=== PATIENT | male | born 1960 | race Caucasian/White ===

== ENCOUNTER → 2018-11-01 | Outpatient (CLI) | payer BC ==
--- NOTE | 2018-11-08 12:59 | SLEEPCENT ---
DATE OF PROCEDURE: 11/01/2018 Nocturnal polysomnography was performed for retitration of pressure therapy in this patient with obstructive sleep apnea syndrome. For testing, a [employer] Simplus full face mask of small size was used and 8 cm of water pressure was initially applied to the circuit and the lights were extinguished. 8 hours and 2 minutes of data were reviewed. There were 373 minutes of sleep identified. Sleep latency was normal at 9 minutes. Rapid eye movement (REM) latency was delayed at 334 minutes. Sleep architecture improved later in the study with optimal pressure therapy. Overall sleep efficiency was 78.9%. The patient's electrocardiogram showed a sinus rhythm with an average heart rate of 50 beats per minute. Rate ranged 40-70 beats per minute. Electroencephalogram (EEG) showed normal waveforms for awake and sleep. Persistence of respiratory events prompted increases in pressure therapy. Fair palliation of respiratory events at a pressure of +10, however, some snoring was noted through the mask. Optimal pressure on review of the study would be 12 cm of water. Some limb activity was noted, particularly prominent early in the study, however, limb movement arousal index was only 5.9. IMPRESSION: Obstructive sleep apnea syndrome (G47.33). RECOMMENDATION: Nightly use of pressure therapy at 12 cm of water.
== END ==
LOC: M SLEEP 18:51
PROVIDERS: ATTEND Internal Medicine Pulmonary Disease
DX: G47.33 Obstructive sleep apnea (adult) (pediatric) (principal)